=== PATIENT | male | born 1960 | race Two or more races ===

== ENCOUNTER 2022-11-18 16:00 | Emergency (ER) | payer SELFPAY ==
[~2022-11-18] VITALS: Ht 167.6 cm; Wt 69.5 kg
[~2022-11-18 16:00] MED LIST: GLIM4TAB42 PO; METF-372 PO
[2022-11-18 16:23] VITALS: PULSE 69; RESP 18; O2SAT 97
[2022-11-18] MEDS ORDERED: KETOROLAC TROMETH 60MG/2ML VIAL IM ONE (17:00)
[2022-11-18] MEDS ORDERED: amLODIPine BESYLATE 5 MG TAB PO ONE (17:00)
[2022-11-18 17:57] LABS: Basophils # (auto) 0 10 ^3/uL (0-0.2); Basophils % (auto) 0.4 % (0.0-2.0); Eosinophils # (auto) 0.3 10 ^3/uL (0-0.8); Eosinophils % (auto) 3.7 % (0.0-7.0); Hematocrit 41.6 % (41.0-53.0); Hemoglobin 14.3 g/dL (13.5-17.5); Lymphocytes # (auto) 2.7 10 ^3/uL (0.4-5.4); Lymphocytes % (auto) 31.1 % (10.0-50.0); Mean Corpuscular Hemoglobin 30.6 pg (28.0-32.0); Mean Corpuscular Hgb Conc. 34.3 g/dL (32.0-36.0); Monocytes # (auto) 0.6 10 ^3/uL (0-1.3); Monocytes % (auto) 6.7 % (0.0-12.0); Neutrophils # (auto) 5.1 10 ^3/uL (1.6-8.6); Neutrophils % (auto) 58.1 % (37.0-80.0); Red Blood Cells 4.68 10^6/uL (4.5-5.90); Red Cell Distribution Width 13.9 % (11.8-14.3); White Blood Cell 8.8 10^3/uL (4.4-10.8)
[2022-11-18 18:13] LABS: Alanine Aminotransferase 21 U/L (7-40); Albumin 4.2 g/dL (3.2-4.8); Alkaline Phosphatase 69 U/L (46-116); Anion Gap 0.4 (5-15); Aspartate Aminotransferase 9 U/L (13-40); BUN/Creatinine Ratio 15.5 (10.0-20.0); Blood Urea Nitrogen 15 mg/dL (9-23); Calcium 9.3 mg/dL (8.7-10.4); Carbon Dioxide 30.6 mmol/L (20-30); Chloride 107 mmol/L (98-107); Glucose 142 mg/dL (74-106); Potassium 4.1 mmol/L (3.5-5.1); Sodium 138 mmol/L (136-145)
[2022-11-18 18:14] LABS: Bilirubin, Total 0.7 mg/dL (0.2-1.0); Total Protein 6.4 g/dL (5.7-8.2)
[2022-11-18 19:49] VITALS: BP 181/93
[2022-11-18] MEDS ORDERED: AML5T PO (19:59)
== END 2022-11-18 20:07 | disposition home or self-care (01) ==
LOC: ER 16:00
DX: I16.0 Hypertensive urgency (principal); E11.9 Type 2 diabetes mellitus without complications
CPT/HCPCS: 36415; 71045; 80053; 84484; 85025; 96372; 99284; J1885

== ENCOUNTER 2023-01-28 19:24 | Inpatient (IN) | payer OTHER ==
[~2023-01-28] VITALS: Ht 167.6 cm; Wt 72.8 kg
[2023-01-28] MEDS: SODIUM CHLORIDE 0.9% 1,000 ML IV SCH (01:30)
[~2023-01-28 19:24] MED LIST changes: +AML5T PO
[2023-01-28] MEDS ORDERED: InsuLIN REG 1unit/0.01ml Soln (100units/ml) IV ONE (20:45)
[2023-01-28] MEDS ORDERED: SODIUM CHLORIDE 0.9% 1,000 ML IVB ONE (20:45)
[2023-01-28] MEDS ORDERED: ONDANSETRON HCL 4 MG/2 ML VIAL IV ONE (20:45)
[2023-01-28] MEDS ORDERED: SODIUM CHLORIDE 0.9% 1,000 ML IV ONE (20:45)
[2023-01-28 21:46] LABS: Mean Corpuscular Volume 99.5 fL (80.0-100.0)
[2023-01-28 21:47] LABS: Hematocrit 46.8 % (41.0-53.0); Hemoglobin 14.5 g/dL (13.5-17.5); Mean Corpuscular Hemoglobin 30.9 pg (28.0-32.0); Red Cell Distribution Width 14.2 % (11.8-14.3); White Blood Cell 28.6 10^3/uL (4.4-10.8)
[2023-01-28 22:01] LABS: Alanine Aminotransferase 16 U/L (7-40); Alkaline Phosphatase 98 U/L (46-116); Calcium 8.4 mg/dL (8.7-10.4); Chloride 88 mmol/L (98-107); INR 1.02 (0.9-1.15); Partial Thromboplastin Time 30.5 SEC (24.5-34.5); Prothrombin Time 10.7 sec (9.3-11.8)
[2023-01-28 22:02] LABS: Albumin 4.4 g/dL (3.2-4.8); Anion Gap 34.00001 (5-15); Aspartate Aminotransferase 22 U/L (13-40); BUN/Creatinine Ratio 19.2 (10.0-20.0); Bilirubin, Total 0.6 mg/dL (0.2-1.0); Blood Alcohol < 3.0 mg/dL (<10); Blood Urea Nitrogen 53 mg/dL (9-23); Sodium 132 mmol/L (136-145); Total Protein 6.9 g/dL (5.7-8.2)
[2023-01-28 22:18] LABS: Basophils % (manual) 0 (0.0-2.0); Blast Cells 0; Eosinophils % (manual) 0 (0-7); Metamyelocytes % 0; Myelocytes % 0; Promyelocytes % 0; Reactive Lymphocytes 0
[2023-01-28 22:29] LABS: Lactic Acid w/Reflex 3.3 mmol/L (0.4-2.0)
[2023-01-28 22:30] LABS: Potassium 5.8 mmol/L (3.5-5.1)
[2023-01-28 22:31] LABS: Carbon Dioxide < 10 mmol/L (20-30); Glucose 720 mg/dL (74-106)
[2023-01-28 22:46] VITALS: PULSE 92; RESP 20; O2SAT 100
[2023-01-28 22:54] LABS: Band Neutrophils % (manual) 1; Lymphocytes % (manual) 6 (10.0-50.0); Monocytes % (manual) 3 (0-12); Platelet Estimate Adequate
[2023-01-28] MEDS ORDERED: SODIUM CHLORIDE 0.9% 1,900 ML IV ONE (23:00)
[2023-01-28] MEDS ORDERED: ACETAMINOPHEN 325 MG TAB PO PRN (23:00)
[2023-01-28] MEDS ORDERED: ALBUMIN 25% 100 ML IV ONE (23:00)
[2023-01-28] MEDS ORDERED: VANCOMYCIN PER PHARMACY 0 MG IV SCH (23:00)
[2023-01-28] MEDS ORDERED: DEXTROSE (50%) 50ML SYRG IV PRN ×2 (23:15)
[2023-01-28] MEDS ORDERED: MAGNESIUM SULFATE 1GM/100ML 200 ML IV ONE (23:15)
[2023-01-28] MEDS ORDERED: NITROGLYCERIN 0.4 MG SL TAB SL PRN (23:15)
[2023-01-28] MEDS ORDERED: SODIUM BICARBONATE 8.4 % INJ 50ML VIAL IV ONE (23:15)
[2023-01-28] MEDS ORDERED: MORPHINE SULFATE INJ 2 MG/ml SYRG IV PRN (23:15)
[2023-01-28] MEDS ORDERED: POTASSIUM CHL 20MEQ/100ML 200 ML IV PRN (23:15)
[2023-01-28] MEDS ORDERED: ONDANSETRON HCL 4 MG/2 ML VIAL IV PRN (23:15)
[2023-01-28] MEDS ORDERED: INSULIN LANTUS (GLARGINE) 1 /0.01ml (100units/ml) SC ONE (23:15)
[2023-01-28] MEDS ORDERED: SODIUM ZIRCONIUM CYCL 10 GM PAK PO ONE (23:15)
[2023-01-28] MEDS ORDERED: INSULIN DRIP 100 UNIT/100ML 100 ML IV SCH ×2 (23:15)
[2023-01-28] MEDS ORDERED: SODIUM CHLORIDE 0.9% 1,000 ML IV SCH (23:15)
[2023-01-28] MEDS ORDERED: VANCOMYCIN 1GM/250ML 250 ML IV ONE (23:30)
[2023-01-28] MEDS: PIPERACILLIN-TAZOB 3.375GM 100 ML IV SCH (23:38)
[2023-01-29] MEDS ORDERED: ACCU-CHEK COMFORT CURVE STRIP VI SCH
[2023-01-29] MEDS: ACCU-CHEK COMFORT CURVE STRIP VI SCH ×14 (00:03→20:32)
[2023-01-29 00:05] LABS: Chloride 96 mmol/L (98-107); Potassium 4.5 mmol/L (3.5-5.1); Sodium 135 mmol/L (136-145)
[2023-01-29 00:06] LABS: Anion Gap 29.00001 (5-15); Calcium 7.6 mg/dL (8.7-10.4)
[2023-01-29 00:11] LABS: BUN/Creatinine Ratio 19.4 (10.0-20.0); Blood Urea Nitrogen 52 mg/dL (9-23)
[2023-01-29 00:12] LABS: Magnesium 2.8 mg/dL (1.6-2.6)
[2023-01-29 00:15] LABS: Phosphorus 9.3 mg/dL (2.4-5.1)
[2023-01-29 00:17] LABS: Carbon Dioxide < 10 mmol/L (20-30)
[2023-01-29 00:18] LABS: Glucose 636 mg/dL (74-106)
[2023-01-29] MEDS ORDERED: SODIUM BICARBONATE 8.4 % INJ 50ML VIAL IV ONE (00:45)
[2023-01-29 01:21] LABS: Lactic Acid w/Reflex 2.4 mmol/L (0.4-2.0)
[2023-01-29] MEDS: SODIUM CHLORIDE 0.9% 1,000 ML IV SCH ×2 (01:30→03:00)
[2023-01-29] MEDS ORDERED: INSULIN DRIP 100 UNIT/100ML 100 ML IV SCH (01:45)
[2023-01-29 02:19] LABS: Chloride 99 mmol/L (98-107); Potassium 4.1 mmol/L (3.5-5.1); Sodium 138 mmol/L (136-145)
[2023-01-29 02:20] LABS: Anion Gap 29.00001 (5-15); Calcium 7.1 mg/dL (8.7-10.4)
[2023-01-29 02:25] LABS: BUN/Creatinine Ratio 17.3 (10.0-20.0); Blood Urea Nitrogen 43 mg/dL (9-23)
[2023-01-29 02:32] LABS: Carbon Dioxide < 10 mmol/L (20-30); Glucose 592 mg/dL (74-106)
[2023-01-29] MEDS ORDERED: SODIUM CHLORIDE 0.9% 1,000 ML IV SCH ×5 (03:15→07:45)
[2023-01-29 05:30] LABS: Amphetamine Screen, Urine Neg (NEGATIVE); Barbiturate Scree,Urine Neg (NEGATIVE); Benzodiazephine Screen, Urine Neg (NEGATIVE); Cannabinoid Screen, Urine Neg (NEGATIVE); Cocaine Screen, Urine Neg (NEGATIVE); Opiate Scree,Urine Neg (NEGATIVE); Phencyclidine Screen, Urine Neg (NEGATIVE)
[2023-01-29 05:31] LABS: Alanine Aminotransferase 16 U/L (7-40); Alkaline Phosphatase 69 U/L (46-116); Anion Gap 21 (5-15); Aspartate Aminotransferase 25 U/L (13-40); BUN/Creatinine Ratio 19.1 (10.0-20.0); Blood Urea Nitrogen 43 mg/dL (9-23); Calcium 7.3 mg/dL (8.5-10.1); Carbon Dioxide 13 mmol/L (20-30); Chloride 107 mmol/L (98-107); Potassium 3.4 mmol/L (3.5-5.1); Sodium 141 mmol/L (136-145)
[2023-01-29 05:32] LABS: Albumin 3.7 g/dL (3.2-4.8); Bilirubin, Total 0.7 mg/dL (0.2-1.0); Total Protein 5.6 g/dL (5.7-8.2)
[2023-01-29 05:35] LABS: Basophils # (auto) 0 10 ^3/uL (0-0.2); Basophils % (auto) 0.1 % (0.0-2.0); Eosinophils # (auto) 0 10 ^3/uL (0-0.8); Hematocrit 36.7 % (41.0-53.0); Hemoglobin 12.1 g/dL (13.5-17.5); Lymphocytes # (auto) 0.5 10 ^3/uL (0.4-5.4); Mean Corpuscular Hemoglobin 30.6 pg (28.0-32.0); Mean Corpuscular Hgb Conc. 32.9 g/dL (32.0-36.0); Monocytes # (auto) 1.4 10 ^3/uL (0-1.3); Monocytes % (auto) 7.5 % (0.0-12.0); Neutrophils # (auto) 16.3 10 ^3/uL (1.6-8.6); Neutrophils % (auto) 89.4 % (37.0-80.0); Red Blood Cells 3.94 10^6/uL (4.5-5.90); Red Cell Distribution Width 13.6 % (11.8-14.3); White Blood Cell 18.2 10^3/uL (4.4-10.8)
[2023-01-29 05:53] LABS: Glucose 405 mg/dL (74-106)
[2023-01-29 06:04] LABS: Urine Bacteria NONE SEEN /hpf (None Seen); Urine Blood 1+ /uL (Negative); Urine Clarity Clear (Clear); Urine Color Colorless (Yellow); Urine Protein, UAD TRACE (Negative); Urine Specific Gravity 1.018 (1.001-1.035); Urine Urobilinogen Normal (Negative); Urine WBC <1 /hpf (0 - 3)
[2023-01-29] MEDS ORDERED: POTASSIUM CHL 20MEQ/100ML 100 ML IV ONE (06:15)
[2023-01-29] MEDS ORDERED: ENOXAPARIN SOD 60 MG/0.6 ML SYRINGE SC ONE (06:15)
[2023-01-29] MEDS: PIPERACILLIN-TAZOB 3.375GM 100 ML IV SCH (06:54)
[2023-01-29] MEDS ORDERED: D5W/SOD CHLO 0.9% 1,000 ML IV SCH (08:45)
[2023-01-29] MEDS: cefTRIAXone 1GM/50ML D5W 50 ML IV SCH (09:04)
[2023-01-29 09:21] VITALS: PULSE 96; RESP 20; O2SAT 94
[2023-01-29] MEDS: INSULIN LANTUS (GLARGINE) 1 /0.01ml (100units/ml) SC SCH (10:13)
[2023-01-29] MEDS ORDERED: ASPirin-EC 325mg tab PO ONE (10:45)
[2023-01-29 11:45] LABS: Chloride 113 mmol/L (98-107); Potassium 3.5 mmol/L (3.5-5.1)
[2023-01-29 11:46] LABS: Anion Gap 13 (5-15); Calcium 7.5 mg/dL (8.5-10.1); Carbon Dioxide 20 mmol/L (20-30)
[2023-01-29 11:51] LABS: BUN/Creatinine Ratio 18.7 (10.0-20.0); Blood Urea Nitrogen 38 mg/dL (9-23)
[2023-01-29 12:01] LABS: Glucose 210 mg/dL (74-106); Sodium 146 mmol/L (136-145)
[2023-01-29] MEDS ORDERED: SOD CHL 0.45% 1,000 ML IV SCH (12:15)
[2023-01-29] MEDS ORDERED: DEXTROSE (50%) 50ML SYRG IV PRN ×2 (12:15→20:45)
[2023-01-29] MEDS: ENOXAPARIN SOD 60 MG/0.6 ML SYRINGE SC SCH ×2 (12:33→22:15)
[2023-01-29] MEDS: InsuLIN REG 1unit/0.01ml Soln (100units/ml) SC SCH ×2 (15:55→20:40)
[2023-01-29 17:37] LABS: Chloride 115 mmol/L (98-107); Potassium 3.5 mmol/L (3.5-5.1); Sodium 148 mmol/L (136-145)
[2023-01-29 17:38] LABS: Anion Gap 10 (5-15); Calcium 7.3 mg/dL (8.7-10.4); Carbon Dioxide 23 mmol/L (20-30)
[2023-01-29 17:43] LABS: Blood Urea Nitrogen 34 mg/dL (9-23); Glucose 84 mg/dL (74-106)
[2023-01-29 20:10] VITALS: PULSE 87; RESP 18; O2SAT 98
[2023-01-29 20:32] LABS: Urine Amorphous Crystal FEW /hpf (None Seen); Urine Bacteria FEW /hpf (None Seen); Urine Blood TRACE /uL (Negative); Urine Budding Yeast OCCASIONAL /hpf (None Seen); Urine Clarity Clear (Clear); Urine Color Colorless (Yellow); Urine Protein, UAD TRACE (Negative); Urine Specific Gravity 1.021 (1.001-1.035); Urine Urobilinogen Normal (Negative); Urine WBC 2 /hpf (0 - 3); Urine pH 5.5 (5.0-8.0)
[2023-01-29 20:38] LABS: Protein, Urine 29.8 mg/dL (0.0-11.9)
[2023-01-29 20:40] LABS: Creatinine, Urine 95.4 mg/dL (30.0-125.0)
[2023-01-29] MEDS: D5W/SOD CHL 0.45% 1,000 ML IV SCH (20:45)
[2023-01-30] VITALS (9 sets, daily range): BP systolic 118–140; BP diastolic 69–85; PULSE 70–97; RESP 16–23; TEMP 98–98.2; O2SAT 94–100
[2023-01-30] MEDS: ACCU-CHEK COMFORT CURVE STRIP VI SCH ×4 (00:34→11:50)
[2023-01-30] MEDS: InsuLIN REG 1unit/0.01ml Soln (100units/ml) SC SCH ×4 (00:34→11:50)
[2023-01-30 03:30] LABS: Uric Acid 8.4 mg/dL (3.7-9.2)
[2023-01-30 03:33] LABS: Phosphorus 1.8 mg/dL (2.4-5.1)
[2023-01-30 09:08] LABS: Chloride 114 mmol/L (98-107); Potassium 3.4 mmol/L (3.5-5.1); Sodium 144 mmol/L (136-145)
[2023-01-30 09:09] LABS: Anion Gap 7 (5-15); Carbon Dioxide 23 mmol/L (20-30)
[2023-01-30 09:10] LABS: Calcium 7.6 mg/dL (8.5-10.1)
[2023-01-30 09:14] LABS: Glucose 104 mg/dL (74-106)
[2023-01-30 09:15] LABS: Blood Urea Nitrogen 18 mg/dL (9-23); LDL Cholesterol 37 mg/dL (< 100); Triglycerides 130 mg/dL (< 150)
[2023-01-30 09:16] LABS: Cholesterol 81 mg/dL (< 200); HDL Cholesterol 20 mg/dL (40-59)
[2023-01-30 09:35] LABS: Basophils # (auto) 0 10 ^3/uL (0-0.2); Basophils % (auto) 0.2 % (0.0-2.0); Eosinophils # (auto) 0 10 ^3/uL (0-0.8); Eosinophils % (auto) 0.2 % (0.0-7.0); Hematocrit 39.7 % (41.0-53.0); Hemoglobin 13.4 g/dL (13.5-17.5); Lymphocytes # (auto) 2.5 10 ^3/uL (0.4-5.4); Lymphocytes % (auto) 15.8 % (10.0-50.0); Mean Corpuscular Hemoglobin 31.1 pg (28.0-32.0); Mean Corpuscular Hgb Conc. 33.7 g/dL (32.0-36.0); Mean Corpuscular Volume 92.1 fL (80.0-100.0); Monocytes # (auto) 1.1 10 ^3/uL (0-1.3); Neutrophils # (auto) 12.1 10 ^3/uL (1.6-8.6); Neutrophils % (auto) 76.8 % (37.0-80.0); Red Blood Cells 4.31 10^6/uL (4.5-5.90); Red Cell Distribution Width 14.3 % (11.8-14.3); White Blood Cell 15.8 10^3/uL (4.4-10.8)
[2023-01-30] MEDS ORDERED: POTASSIUM CHL 20 Meq TABLET PO ONE (09:45)
[2023-01-30] MEDS: cefTRIAXone 1GM/50ML D5W 50 ML IV SCH (09:59)
[2023-01-30] MEDS: ASPirin-EC 81 mg tab PO SCH (09:59)
[2023-01-30] MEDS ORDERED: ENOXAPARIN SOD 40 MG/0.4 ML SYRINGE SC SCH (10:00)
[2023-01-30] MEDS: ENOXAPARIN SOD 60 MG/0.6 ML SYRINGE SC SCH ×2 (10:00→22:00)
[2023-01-30] MEDS: INSULIN LANTUS (GLARGINE) 1 /0.01ml (100units/ml) SC SCH (11:16)
[2023-01-30] MEDS: D5W/SOD CHL 0.45% 1,000 ML IV SCH (11:35)
[2023-01-30] MEDS ORDERED: fentaNYL CITRATE 100 MCG/2 ML VL ONE (19:07)
[2023-01-30] MEDS ORDERED: HEPARIN SODIUM (PORCINE) 5000 UNITS/ML 1ML VIAL ONE (19:07)
[2023-01-30] MEDS ORDERED: VERAPAMIL 2.5MG/ML INJ 2ML VIAL IV ONE (19:07)
[2023-01-30] MEDS ORDERED: ANGIOMAX 250 MG VIAL IV ONE (19:07)
[2023-01-30] MEDS ORDERED: MIDAZOLAM HCL 2MG/2ML 2ml VIAL (1mg/ml) ONE (19:08)
[2023-01-30] MEDS ORDERED: LIDOCAINE 2%HCL (LOCAL ANESTH.) INJ 20ML MDV ONE (19:08)
[2023-01-30] MEDS ORDERED: SODIUM CHL 0.9% 50 ML ONE (19:08)
[2023-01-30] MEDS ORDERED: IODIXANOL 320MG/ML 100ML BTL IV ONE ×3 (19:08→19:26)
[2023-01-31] MEDS: ACCU-CHEK COMFORT CURVE STRIP VI SCH ×3 (00:17→08:55)
[2023-01-31] MEDS: InsuLIN REG 1unit/0.01ml Soln (100units/ml) SC SCH ×3 (00:22→08:00)
[2023-01-31] MEDS ORDERED: InsuLIN REG 1unit/0.01ml Soln (100units/ml) ONE ×2 (00:28→04:12)
[2023-01-31] MEDS: D5W/SOD CHL 0.45% 1,000 ML IV SCH (01:03)
[2023-01-31 05:00] VITALS: BP 143/84; PULSE 78; RESP 17; TEMP 99; O2SAT 96
[2023-01-31 06:13] LABS: Basophils # (auto) 0 10 ^3/uL (0-0.2); Basophils % (auto) 0.1 % (0.0-2.0); Eosinophils # (auto) 0 10 ^3/uL (0-0.8); Eosinophils % (auto) 0.3 % (0.0-7.0); Hematocrit 35.5 % (41.0-53.0); Hemoglobin 11.8 g/dL (13.5-17.5); Lymphocytes # (auto) 2.1 10 ^3/uL (0.4-5.4); Lymphocytes % (auto) 16.6 % (10.0-50.0); Mean Corpuscular Hemoglobin 30.2 pg (28.0-32.0); Mean Corpuscular Hgb Conc. 33.1 g/dL (32.0-36.0); Mean Corpuscular Volume 91.2 fL (80.0-100.0); Monocytes # (auto) 0.9 10 ^3/uL (0-1.3); Monocytes % (auto) 6.9 % (0.0-12.0); Neutrophils # (auto) 9.5 10 ^3/uL (1.6-8.6); Neutrophils % (auto) 76.1 % (37.0-80.0); Nucleated Red Blood Cells % 0.1 %; White Blood Cell 12.5 10^3/uL (4.4-10.8)
[2023-01-31 06:33] LABS: Anion Gap 9 (5-15); Carbon Dioxide 23 mmol/L (20-30); Chloride 109 mmol/L (98-107); Potassium 3.5 mmol/L (3.5-5.1); Sodium 141 mmol/L (136-145)
[2023-01-31 06:35] LABS: Calcium 7.8 mg/dL (8.7-10.4)
[2023-01-31 06:38] LABS: Glucose 151 mg/dL (74-106)
[2023-01-31 06:39] LABS: BUN/Creatinine Ratio 12.4 (10.0-20.0); Blood Urea Nitrogen 12 mg/dL (9-23)
[2023-01-31] MEDS ORDERED: guaiFENesin-DM 100/10mg/5ml SYR PO PRN (07:45)
[2023-01-31] MEDS ORDERED: INSLANTI SC (07:49)
[2023-01-31] MEDS ORDERED: METF-929 PO (07:49)
[2023-01-31] MEDS ORDERED: METO25TA36 PO (07:49)
[2023-01-31] MEDS ORDERED: DOXY1LIQ18 PO (07:50)
[2023-01-31 08:00] VITALS: BP 142/68; PULSE 74; PULSE 76; RESP 18; TEMP 97.6; O2SAT 93
[2023-01-31] MEDS: ASPirin-EC 81 mg tab PO SCH (10:00)
[2023-01-31 10:27] VITALS: BP 142/68; PULSE 74; RESP 18; TEMP 97.6; O2SAT 93
[2023-01-31] MEDS: INSULIN LANTUS (GLARGINE) 1 /0.01ml (100units/ml) SC SCH (11:29)
== END 2023-01-31 11:45 | disposition home or self-care (01) | DRG 420 ==
LOC: ER 19:24 → EDBD 19:24 → TELE 23:08 → UNDODISIN 01-30 14:31 → EAST 01-30 14:37 → TELE-EAST 01-30 14:42
PROVIDERS: ADMIT Nurse Practitioner; ATTEND Nurse Practitioner
PROC: 4A023N7 Measurement of Cardiac Sampling and Pressure, Left Heart, Percutaneous Approach (ICD-10-PCS; principal; 2023-01-30)
PROC: B215YZZ Fluoroscopy of Left Heart using Other Contrast (ICD-10-PCS; 2023-01-30)
PROC: B211YZZ Fluoroscopy of Multiple Coronary Arteries using Other Contrast (ICD-10-PCS; 2023-01-30)
DX: E11.10 Type 2 diabetes mellitus with ketoacidosis without coma (principal); N17.0 Acute kidney failure with tubular necrosis; I21.A1 Myocardial infarction type 2; R65.10 Systemic inflammatory response syndrome (SIRS) of non-infectious origin without acute organ dysfunction; E86.0 Dehydration; E86.1 Hypovolemia; D72.829 Elevated white blood cell count, unspecified; E11.22 Type 2 diabetes mellitus with diabetic chronic kidney disease; I12.9 Hypertensive chronic kidney disease with stage 1 through stage 4 chronic kidney disease, or unspecified chronic kidney disease; E03.9 Hypothyroidism, unspecified; N18.32 Chronic kidney disease, stage 3b; E78.5 Hyperlipidemia, unspecified; I25.10 Atherosclerotic heart disease of native coronary artery without angina pectoris; Z79.4 Long term (current) use of insulin; Z79.899 Other long term (current) drug therapy; Z91.148 Patient's other noncompliance with medication regimen for other reason
CPT/HCPCS: 36415; 36600; 71045; 76775; 80048; 80053; 80061; 80202; 80307; 80320; 81001; 82010; 82570; 82805; 82962; 83036; 83605; 83735; 83880; 83930; 84100; 84156; 84300; 84443; 84484; 84550; 85007; 85025; 85027; 85610; 85730; 86850; 86900; 86901; 87040; 93005; 93306; 93458; 96361; 96374; 96375; 99152; G0378; J0696; J1815; J2250; J2405; J2543; J3480; P9047; Q9967